=== PATIENT | female | born 1990 | race Caucasian/White ===

== ENCOUNTER → 2024-02-16 13:06 | Outpatient (REF) | payer OTHER, SELFPAY | LOC: HWRAD 13:06 | PROVIDERS: ATTENDING PHYSICIAN Student in an Organized Health Care Education/Training Program; FAMILY PHYSICIAN Family Medicine | DX: Z34.80 Encounter for supervision of other normal pregnancy, unspecified trimester (principal) | CPT/HCPCS: 76805 ==